=== PATIENT | female | born 1960 | race Caucasian/White ===

== ENCOUNTER → 2016-12-22 | Day surgery (SDC) | payer MEDICAID ==
[~2016-12-22] MED LIST: Lactated Ringers 1,000 ML IV SCH; Propofol 200 MG/20 ML SDV IV ONE
[2016-12-22 10:04] VITALS: BP 129/88
--- NOTE | 2016-12-22 14:51 | OR ---
DATE OF OPERATION: 12/22/2016 PREOPERATIVE DIAGNOSIS: EPIGASTRIC PAIN. POSTOPERATIVE DIAGNOSIS: EPIGASTRIC PAIN. SURGEON: Oni Bailey MD PROCEDURE: ESOPHAGOGASTRODUODENOSCOPY WITH BIOPSIES X4, ALBERTINA. 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 COMPLICATIONS: None. SPECIMEN: 1. Antral biopsy x2. 2. ALBERTINA. 3. Fundal biopsy x2. FINDINGS: 1. Full-length EGD. 2. Chronic severe diffuse gastritis without ulceration. Minimal focal erosions. RECOMMENDATIONS: The patient was instructed on avoidance of nicotine, caffeine and alcohol and use of ongoing proton pump therapy. INDICATIONS: Ms. Lua has been having persistent epigastric pain. She is agreeable to EGD. DESCRIPTION OF PROCEDURE: The patient was prepped and draped, placed in the left lateral decubitus position. A lubricated Olympus gastroscope was inserted over a bit and easily intubated in the esophagus. The esophageal lining appeared benign in its entire course. The Z-line was crisp and sharp at 38 cm. No hernia present. No distal esophagitis, stricturing, ulceration, or spontaneous reflux. The scope was advanced into the stomach through the pylorus into the third portion of the duodenum. Second and third portion of the duodenum along with duodenal bulb appeared benign. The scope was brought back into the stomach and retroflexed. The upper most part of the fundus and cardia appeared benign. Upon straightening, the patient has diffuse and severe chronic gastritis. No focal ulcerations or significant erosions. No polyps, mass or otherwise. Biopsies x2 of the fundus and antrum along with a CLOtest were obtained. No other lesions were identified. Air was then suctioned. Scope was removed without complications. FLOR/LIZETH /[id number]
== END ==
LOC: CC.SDS 08:23
PROVIDERS: ATTEND Family Medicine
DX: K29.50 Unspecified chronic gastritis without bleeding (principal); F41.9 Anxiety disorder, unspecified; F32.9 Major depressive disorder, single episode, unspecified; Z79.82 Long term (current) use of aspirin; Z79.899 Other long term (current) drug therapy
CPT/HCPCS: 43239; 87081; J2704; J7120